=== PATIENT | female | born 1965 | race Caucasian/White ===

== ENCOUNTER → 2017-03-03 | Day surgery (SDC) | payer OTHER ==
[~2017-03-03] VITALS: Ht 177.8 cm; Wt 79.0 kg
[~2017-03-03] MED LIST: 0.9% Sodium Chloride 1,000 ML IV SCH; ASPI-973 PO; CEFD300C3 PO; CHOL200047 PO; CRAN200C2 PO; CYAN500L4 PO; DIPH25CA6 PO; FLAX100038 PO; GLUC100016 PO; METH2.5T PO; MULT-1018 PO; NITR100 PO; OMEP20TA86 PO; Sodium Chloride LOK Flush 10 mL Syringe IV PRN; THYM1TAB PO; [UNRECOGNIZED DRUG - CODE] PO; fentaNYL-PF 50 mCg/mL 2 mL Inj IVPUSH PRN
[2017-03-03 10:39] VITALS: BP 110/74; PULSE 59; RESP 20; O2SAT 98
[2017-03-03 11:27] VITALS: BP 101/63; PULSE 58; RESP 16; O2SAT 98
[2017-03-03 11:44] VITALS: BP 103/66; PULSE 59; RESP 16; O2SAT 99
--- NOTE | 2017-03-03 13:32 | ENDO ---
[address] [address] ENDOSCOPY PROCEDURE PATIENT: COLBY IBARRA : 1965 MR#: [id number] ADMIT: 03/03/2017 JOB ID: [id number] DATE: 03/03/2017 PROCEDURE: Esophagogastroduodenoscopy (EGD). INDICATION: Gastroesophageal reflux. Patient's ASA classification is two. Mallampati score is two. MEDICATIONS: Versed 5 mg, fentanyl 100 mcg. INSTRUMENT USED: GIF H 180 J. PROCEDURE DETAILS: After informed consent was obtained the patient was brought into the GI suite, where she was placed on oxygen via nasal cannula and monitored with continuous pulse oximeter, telemetry, and blood pressure monitoring. A time-out was performed, then she was placed in the left lateral decubitus position and medications were administered for sedation. A bite block was placed. The standard EGD scope was then inserted through the bite block and advanced under direct visualization to the second portion of the duodenum without difficulty. FINDINGS: 1. Normal appearing duodenal bulb, first and second portion. 2. Normal-appearing pylorus, antrum, and gastric body. 3. Retroflexed views in the gastric body revealed a normal-appearing cardia and fundus. 4. The squamocolumnar junction was at approximately 42 cm, which coincided with the top of the gastric folds. Arising up to 41 cm was a salmon-colored tongue of mucosa suggestive of Overton's. Multiple biopsies were obtained. 5. Biopsies were obtained in the mid esophagus as well. 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 RECOMMENDATIONS: 1. Reflux precautions. 2. Continue PPI. 3. Follow up in GI Clinic. COMPLICATIONS: None. ESTIMATED BLOOD LOSS: Less than 5 mL.
== END | disposition home or self-care (01) ==
LOC: END 00:15
PROVIDERS: ATTEND Internal Medicine Gastroenterology
DX: K21.9 Gastro-esophageal reflux disease without esophagitis (principal); M34.89 Other systemic sclerosis; I73.00 Raynaud's syndrome without gangrene; Z79.82 Long term (current) use of aspirin; Z86.718 Personal history of other venous thrombosis and embolism; Z87.891 Personal history of nicotine dependence; Z79.899 Other long term (current) drug therapy
CPT/HCPCS: 43239; G0500; J2250; J3010; J7030